=== PATIENT | male | born 1980 | race Two or more races ===

== ENCOUNTER → 2016-05-11 | Outpatient (CLI) | payer SELFPAY ==
[2016-05-12 15:40] LABS: MIDPIECE ABNORMAL 7.5 % (()); MOTILE/EJACULATE 186.9 x10(6) (>=9.0); MOTILE/mL 62.3 x10(6) (>=6.0); MOTILITY 63 % (>=40); SEMEN CONTAINER TYPE 50 mL Conical (()); SPERM/ML 98.9 x10(6) (>=15.0); STRICT MORPH % NORMAL 8.5 % (>=4.5); STUDY TYPE Semen (())
== END ==
LOC: CLAB 05-07 07:51
PROVIDERS: ATTEND Obstetrics & Gynecology
DX: N46.11 Organic oligospermia (principal)
CPT/HCPCS: 88184; 88185; 88237; 88264; 88280; 89310